=== PATIENT | male | born 1955 | race Caucasian/White ===

== ENCOUNTER 2016-08-16 09:40 | Day surgery (SDC) | payer OTHER ==
[~2016-08-16] VITALS: Ht 177.8 cm; Wt 94.3 kg
[~2016-08-16 09:40] MED LIST: ACYC200C PO; ASCO500C6 PO; ASPI325T32 PO; LACT1CAP65 PO; LOSA25TA2 PO
[2016-08-16 09:56] VITALS: BP 140/79; PULSE 50; O2SAT 96
[2016-08-16] MEDS ORDERED: fentaNYL-PF 50 mCg/mL 2 mL Inj ONE (10:27)
[2016-08-16] MEDS ORDERED: 0.9% Sodium Chloride 1,000 ML IV ONE (10:29)
[2016-08-16 11:11] VITALS: BP 155/89; PULSE 58; RESP 16; O2SAT 97
[2016-08-16] MEDS ORDERED: 0.9% Sodium Chloride 1,000 ML IV PRN (11:17)
[2016-08-16] MEDS ORDERED: fentaNYL-PF 50 mCg/mL 2 mL Inj IVPUSH PRN (11:20)
[2016-08-16] MEDS ORDERED: Sodium Chloride LOK Flush 10 mL Syringe IV PRN (11:20)
[2016-08-16 11:21] VITALS: BP 130/82; PULSE 47; RESP 16; O2SAT 94
[2016-08-16 11:35] VITALS: BP 126/73; PULSE 46; RESP 16; O2SAT 97
--- NOTE | 2016-08-16 23:02 | ENDO ---
[address] [address] ENDOSCOPY PROCEDURE PATIENT: SANCHO ROLLE : 1955 MR#: [id number] ADMIT: 08/16/2016 JOB ID: [id number] DATE OF PROCEDURE: 08/16/2016 PRIMARY PROVIDER: Mina Geronimo MD. PROCEDURE: Colonoscopy. INDICATIONS: This is a 61-year-old male with a family history of colon cancer in his uncle and colon polyps at an early age in his dad. EQUIPMENT: [employer]-H180AL. SEDATION: 1. Versed 6 mg. 2. Fentanyl 150 mcg. COMPLICATIONS: None identified. BOWEL PREPARATION: Fair, adequate exam. PROCEDURE INFORMATION: After the risks and benefits were explained, written and verbal informed consent was obtained. The patient was brought into the endoscopy suite and placed into the left lateral decubitus position. Sedation was achieved using the above stated medications with the addition of oxygen via nasal cannula. A digital rectal examination was accomplished. No significant pathology was appreciated. The scope was introduced into the rectum and advanced under direct visualization to the cecum as identified by the appendiceal orifice and ileocecal valve. The scope was slowly withdrawn to carefully examine the mucosa for any defects or lesions. Retroflexed views were accomplished in the rectum. The colon was decompressed, scope removed from the patient, who tolerated the procedure well. FINDINGS: No significant polyps, mass lesions, or inflammatory features identified throughout, including retroflexed views from within the rectum. ENDOSCOPIC DIAGNOSES: Visually unremarkable colonoscopy to cecum. RECOMMENDATIONS: Considering family history, repeat colonoscopy in five years.
== END 2016-08-16 23:59 | disposition home or self-care (01) ==
LOC: END 09:40
PROVIDERS: ATTEND Internal Medicine Gastroenterology
DX: Z12.11 Encounter for screening for malignant neoplasm of colon (principal); Z80.0 Family history of malignant neoplasm of digestive organs; R01.1 Cardiac murmur, unspecified; Z79.82 Long term (current) use of aspirin
CPT/HCPCS: 99153; G0105; G0500; J2250; J3010; J7030